=== PATIENT | female | born 1965 | race Caucasian/White ===

== ENCOUNTER 2019-02-03 12:06 | Day surgery (SDC) | payer OTHER ==
[2019-02-02 12:31] VITALS: BMI 27.6
[2019-02-03] MEDS: NEO/POLYMYX B SULF/DEXAMETH OPHTHALMIC 5ML BOTTLE OS SCH ×3 (12:50→13:10)
[2019-02-03] MEDS ORDERED: ACETAMINOPHEN 325 MG TABLET (FP) PO PRN (14:57)
[2019-02-03] MEDS ORDERED: LIDOCAINE HCL/EPINEPHRINE/PF 20 ML VIAL ONE (15:04)
[2019-02-03] MEDS ORDERED: EPI-SHUGARCAINE (EPINEPHRINE 0.025% & LIDOCAINE-PF 0.75%) 4ML ONE (15:08)
[2019-02-03] MEDS ORDERED: MIDAZOLAM HCL 2 MG/2 ML SINGLE DOSE VIAL ONE (15:41)
[2019-02-03] MEDS ORDERED: SUCCINYLCHOLINE CHLORIDE 200 MG/10 ML SYRINGE ONE (16:11)
[2019-02-03] MEDS ORDERED: LIDOCAINE HCL/PF 2% SDV 5ML VIAL ONE (16:11)
[2019-02-03] MEDS ORDERED: PROPOFOL 20 ML ONE (16:11)
[2019-02-03] MEDS ORDERED: methylPREDNISolone NA SUCC 40 MG/1 ML VIAL ONE (17:13)
[2019-02-03] MEDS ORDERED: LIDOCAINE HCL 1% PRESERVATIVE FREE - 30ML VIAL ONE (17:13)
[2019-02-03] MEDS ORDERED: ACETAMINOPHEN 325 MG TABLET (FP) ONE (17:30)
[2019-02-03 17:43] VITALS: TEMP 97.9
[2019-02-03 17:55] VITALS: BP 123/72
[2019-02-03 18:23] VITALS: PULSE 73
--- NOTE | 2019-02-04 00:51 | OP ---
DATE OF OPERATION: 02/03/2019 PROCEDURE: Excision of pterygium of the left eye with use of mitomycin 0.02% solution and repair by conjunctival autograft. SURGEON: Zackery Carter MD WHEEL LOADER OPERATOR SURGEON: None. ANESTHESIA: RACHEL Cortez COMPLICATIONS: None. 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 FINDINGS AND PROCEDURE: After successful lid betzaida was given with 2% Xylocaine with epinephrine to both upper and lower lids in the left eye, the patient was prepped and draped in the usual manner to expose the left eye. The Tegaderm strips were placed on the lashes. Lid speculum was inserted and traction sutures of 6-0 Vicryl were placed at 12 o'clock and 6 o'clock. The operating microscope was brought into position over the eye prior to the placement of the traction sutures. Sugarcane solution was dripped throughout the procedure. Viscoat was placed topically on the cornea throughout. Attention was focused to the body and head of the pterygium, which was outlined with a marking pen. The complete excision of the body and head was done with a combination of Christina scissors, crescent blade, and 0.12 forceps, leaving a clear cornea and conjunctival defect, which was closed with 3 interrupted 10-0 Ethilon sutures after mitomycin-soaked Weck-Cell sponges were placed on the excision site, except for the cornea, for approximately 2 minutes and then these were removed and the area copiously irrigated with BSS. The defect, as I mentioned, was closed with 3 interrupted 10-0 Ethilon sutures followed by a conjunctival autograft measuring 3 x 3 mm with the stem cell side facing the limbal area and this was put in place with 4 interrupted 10-0 Ethilon sutures, resulting in complete closure of the conjunctival defect. At this point, the globe was intact. Red reflexes were present. Pupil was round and reactive. The traction sutures were cut and removed from the eye. The topical Betoptic S, bacitracin, and polymyxin-B ophthalmic ointment was placed topically on the cornea and the conjunctival autograft. It should be noted that subconjunctival injection of lidocaine with Solu-Medrol 40 mg was injected in the inferior cul-de-sac subconjunctivally. The Tegaderm strips were removed as was the speculum. The lids were closed and a doubled eye pad, mildly-pressured patch was placed along with a plastic shield over the left eye. The patient was then discharged from the operating room to the recovery area in good condition, having tolerated the procedure well. Mary Jane YODER/[id number]
--- NOTE | 2019-02-05 15:44 | PATH ---
Surgical Pathology Report Patient Name: KALA SU [facility]. Rec. #: [id number] /Age/Gender: 1965 (Age: 53) / F Account: [id number] Location: [facility] Taken: 02/03/2019 Received: 02/03/2019 Reported: 02/05/2019 Physicians: Zackery Cárdenas Specimen(s) Received LEFT PTERYGIUM Clinical History Left eye pterygium Final Diagnosis PTERYGIUM, LEFT EYE, EXCISION: PTERYGIUM. Electronically Signed Viri Palacios M.D. Gross Description Received in formalin, labeled "left pterygium" is a varela, irregular portion of soft tissue measuring 0.4 cm. in greatest dimension. The specimen is submitted in toto in one cassette. 02/04/201902/04/2019
== END 2019-02-03 18:15 | disposition home or self-care (01) ==
LOC: FASU 12:06
PROVIDERS: ATTEND Ophthalmology
PROC: 08U107Z Supplement of Left Eye with Autologous Tissue Substitute, Open Approach (ICD-10-PCS; principal; 2019-02-03 16:30)
DX: H11.002 Unspecified pterygium of left eye (principal); H11.89 Other specified disorders of conjunctiva; H18.892 Other specified disorders of cornea, left eye
CPT/HCPCS: 84703; 88304-TC